=== PATIENT | female | born 1950 | race Hispanic/Latino ===

== ENCOUNTER 2018-07-27 18:21 | Emergency (ER) | payer OTHER ==
[~2018-07-27] VITALS: Ht 142.2 cm; Wt 53.5 kg
--- OUTSIDE RECORDS SUMMARY | 2018-07-27 18:23 | XMS REPORT | Summary of Care ---
Author Author [facility] Primary Care [facility] Organization [facility] Address Unknown Phone Unavailable Encounter HQ Malina(FIN) [id number] Date(s): 07/27/17 - 07/28/17 [facility] [address], [address] [place] [address]- [phone] Vital Signs No data available for this section Problem List Condition Effective Dates Status Health Status Informant Dental Active caries(Confirmed) History of recurrent Resolved ear infection(Confirmed) Osteoporosis(Confirm Active ed) Annual physical Active exam(Confirmed) Preoperative Active clearance(Confirmed) Screening for breast Active cancer(Confirmed) Screening for Active glaucoma(Confirmed) Sjogren's Resolved syndrome(Confirmed) Encounter for Active immunization(Confirm ed) Allergies, Adverse Reactions, Alerts Substance Reaction Severity Status NKDA Active Medications No data available for this section Results No data available for this section Immunizations Given and Recorded Vaccine Date Status Refusal Reason pneumococcal 23-valent vaccine1 01/12/17 Given influenza virus vaccine, inactivated2 01/12/17 Given 1Result Comment: Patient waited 15 min with no reaction. 2Result Comment: Patient waited 15 min with no reaction. Procedures Procedure Date Related Diagnosis Body Site Status Bone density scan1 01/23/17 Completed Screening mammography2 01/23/17 Completed Screening colonoscopy3 2011 Completed section4 Completed 1IMPRESSION: OSTEOPOROSIS OF LUMBAR SPINE Patient is at high risk for fracture. 2IMPRESSION: BENIGN RECOMMENDATION:There is no mammographic evidence of malignancy. A 1 year screeni ng mammogram is recommended.(01/24/2018) 3Repeat in 10 yrs [address], 1975 Social History Social History Type Response Substance Abuse Use: None. 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
--- OUTSIDE RECORDS SUMMARY | 2018-07-27 18:23 | XMS REPORT | Summary of Care ---
Author Author [facility] Care [facility] Organization [facility] Address Unknown Phone Unavailable Encounter ALYCIA Radford(FIN) [id number] Date(s): 07/29/17 - 07/29/17 [facility] [address], [address] [place] [address]- [phone] Discharge Disposition: Home or Self Care Attending Physician: Ilya Nagy MD Vital Signs Most recent to 1 oldest [Reference Range]: Height 144.78 cm (07/29/17 3:44 PM) Temperature Oral 98.0 DegF [96.4-99.1 DegF] (07/29/17 3:44 PM) Blood Pressure 136/81 mmHg [90-140/60-90 mmHg] (07/29/17 3:44 PM) Respiratory Rate 14 BRMIN [14-20 BRMIN] (07/29/17 3:44 PM) Peripheral Pulse 98 bpm Rate [60-100 bpm] (07/29/17 3:44 PM) Weight 49.091 kg (07/29/17 3:44 PM) Body Mass Index 23.42 m2 (07/29/17 3:44 PM) Problem List Condition Effective Dates Status Health Status Informant Dental Active caries(Confirmed) History of recurrent Resolved ear infection(Confirmed) Osteoporosis(Confirm Active ed) Annual physical Active exam(Confirmed) Preoperative Active clearance(Confirmed) Screening for breast Active cancer(Confirmed) Screening for Active glaucoma(Confirmed) Sjogren's Resolved syndrome(Confirmed) Encounter for Active immunization(Confirm ed) Allergies, Adverse Reactions, Alerts Substance Reaction Severity Status NKDA Active Medications No Known Medications Results No data available for this section [...] mammogram is recommended.(01/24/2018) 3Repeat in 10 yrs [address], 1975 Social History Social History Type Response Substance Abuse Use: None. 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
--- OUTSIDE RECORDS SUMMARY | 2018-07-27 18:23 | XMS REPORT | Summary of Care ---
Author Author [facility] Organization [facility] Address Unknown Phone Unavailable Encounter ALYCIA Radford(FIN) [id number] Date(s): 07/20/17 - 07/20/17 [facility] [address], [address] [place] [address]- [phone] Discharge Disposition: Home or Self Care Attending Physician: Annie Hayes MD Vital Signs Most recent to 1 oldest [Reference Range]: Height 144.78 cm (07/20/17 8:07 AM) Temperature Oral 97.5 DegF [96.4-99.1 DegF] (07/20/17 8:07 AM) Blood Pressure 109/67 mmHg [90-140/60-90 mmHg] (07/20/17 8:07 AM) Respiratory Rate 16 BRMIN [14-20 BRMIN] (07/20/17 8:07 AM) Peripheral Pulse 70 bpm Rate [60-100 bpm] (07/20/17 8:07 AM) Weight 49.318 kg (07/20/17 8:07 AM) Body Mass Index 23.53 m2 (07/20/17 8:07 AM) Problem List Condition Effective Dates Status Health Status Informant Dental Active caries(Confirmed) History of recurrent Resolved ear infection(Confirmed) Osteoporosis(Confirm Active ed) Annual physical Active exam(Confirmed) Preoperative Active clearance(Confirmed) Screening for breast Active cancer(Confirmed) Screening for Active glaucoma(Confirmed) Sjogren's Resolved syndrome(Confirmed) Encounter for Active immunization(Confirm ed) Allergies, Adverse Reactions, Alerts Substance Reaction Severity Status NKDA Active Medications alendronate 70 mg oral tablet 70 mg=1 tab, PO, Q7D, with 6 to 8 ounces plain water, at least 30 minutes before first food, beverage, or medication of the day, # 12 tab, 1 Refill(s), Pharmacy: [facility] [id number] Start Date: 07/20/17 Status: Ordered calcium-vitamin D 600 mg-400 intl units oral tablet 1 tab, PO, BID, # 60 tab, 0 Refill(s) Start Date: 07/20/17 Status: Ordered Results No data available for this section [...] mammogram is recommended.(01/24/2018) 3Repeat in 10 yrs [address], 1975 Social History Social History Type Response Substance Abuse Use: None. 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
--- OUTSIDE RECORDS SUMMARY | 2018-07-27 18:23 | XMS REPORT | Continuity of Care Document ---
Author Author [facility] Address Unknown Phone Unavailable Problems Problem Status Onset Date Classification Date Reported Comments Source V76.12 - SCREEN MAMMOGRA Active 12/26/2014 [facility] [place] NAUSEA Active 12/19/2014 [facility] Dental caries Active Problem 11/25/2017 [facility] History of recurrent ear infection Resolved Problem 11/25/2017 [facility] [place] Osteoporosis Active Problem 11/25/2017 [facility] [place] Preoperative clearance Active Problem 11/25/2017 [facility] [place] Screening for breast cancer Active Problem 11/25/2017 [facility] [place] Screening for glaucoma Active Problem 11/25/2017 [facility] Sjogren's syndrome Resolved Problem 11/25/2017 [facility] [place] Encounter for immunization Active Problem 11/25/2017 [facility] [place] Medications Medication Details Route Status Patient Instructions Ordering Provider Order Date Source Calcium Carbonate 1500 MG / Cholecalciferol 400 UNT Oral Tablet 1 tab, PO, BID, # 60 tab, 0 Refill(s) Active 07/20/2017 [facility] Alendronic acid 70 MG Oral Tablet 70 mg=1 tab, PO, Q7D, with 6 to 8 ounces plain water, at least 30 minutes before first food, beverage, or medication of the day, # 12 tab, 1 Refill(s), Pharmacy: [facility] [id number] Active 07/20/2017 [facility] Saline Flush 0.9% 10 mL, Route: IVP, Drug Form: INJ, Dosing Weight 52.273, kg, PRN, PRN Line Flush, Start date: 12/19/14 13:15:00, Duration: 30 day, Stop date: 01/18/15 13:14:00 Inactive 12/19/2014 [facility] Allergies, Adverse Reactions, Alerts Substance Category Reaction Severity Reaction type Status Date Reported Comments Source Immunizations Immunization Date Given Site Status Last Updated Comments Source pneumococcal 23-valent vaccine<sup>2</sup> 01/12/2017 Left Deltoid completed [facility] Result Comment: Patient waited 15 min with no reaction. [facility] pneumococcal 23-valent vaccine<sup>1</sup> 01/12/2017 Left Deltoid completed [facility] Result Comment: Patient waited 15 min with no reaction. [facility] influenza virus vaccine, inactivated<sup>1</sup> 01/12/2017 Right Deltoid completed [facility] Result Comment: Patient waited 15 min with no reaction. [facility] [place] influenza virus vaccine, inactivated<sup>2</sup> 01/12/2017 Right Deltoid completed [facility] Result Comment: Patient waited 15 min with no reaction. [facility] Results Order Name Results Value Reference Range Date Interpretation Comments Source Breast Mammo Scrn MAREK incl CAD MA Breast Mammo Scrn AMREK incl CAD MA BILATERAL DIGITAL SCREENING MAMMOGRAM WITH CAD: 03/03/2018 CLINICAL: Encounter For Other Screening For Malignant Neoplasm Of Breast/Z12.39. Current study was evaluated with a Computer Aided Detection (CAD) system. COMPARISON:Comparison is made to exams dated: 01/23/2017 mammogram, 01/12/2015 mammogram, and 01/10/2014 mammogram - [facility]. TECHNIQUE: Mammographic views were obtained using digital acquisition. Current study was also evaluated with a Computer Aided Detection (CAD) system. FINDINGS: The tissue of both breasts is heterogeneously dense, which could obscure detection of small masses. There are benign appearing calcifications in both breasts. No significant masses, calcifications, or other findings are seen in either breast. There has been no significant interval change. IMPRESSION: BENIGN RECOMMENDATION:There is no mammographic evidence of malignancy. A 1 year screening mammogram is recommended.(03/04/2019) Professional services are provided by the [facility]. Dr. Cordelia collazo/penmabel:03/03/2018 09:23:47 Student Services Director(s): RT Yaa(R)(M), [facility] letter sent: BI-RADS 1/2 Mammogram BI-RADS: 2 Benign 03/03/2018 - - Read by: Cordelia Mcknight DO Dictated Date/time: 03/03/18 09:23 Electronically Signed by: Cordelia Mcknight DO 03/03/18 09:23 [facility] Bone Density D[facility] [employer] MA Bone Density D[employer] MA BONE DENSITY ASSESSMENT: 03/03/2018 CLINICAL DATA: Post menopausal. M81.0 Age related osteoporosis. RISK FACTORS: . COMPARISON: 01/23/2017 Right hip using a Hologic unit from [facility] with reported normal fracture risk, BMD of 0.817g/cm2, T-score of -1.00, and Z-score of 0.10. 01/23/2017 AP L1-L2 region of spine using a Hologic unit from [facility] with reported high fracture risk, BMD of 0.660g/cm2, T-score of -2.90, and Z-score of -1.20. 01/23/2017 Left hip using a Hologic unit from [facility] with reported medium fracture risk, BMD of 0.756g/cm2, T-score of -1.50, and Z-score of - 0.30. FINDINGS: Bone density evaluation was performed 03/03/2018 on the right femur neck using a Hologic unit. The BMD average for the exam is 0.747 g/cm2. The T-score is -0.90 and the Z-score is 0.50. This matches the World Health Organization's criteria for normal bone density and places the patient within normal limits of fracture risk. An additional bone density evaluation was performed 03/03/2018 on the left femur neck using a Hologic unit. The BMD average for the exam is 0.686 g/cm2. The T- score is -1.50. This matches the World Health Organization's criteria for osteopenia and places the patient at a medium risk for fracture. An additional bone density evaluation was performed 03/03/2018 on the right hip using a Hologic unit. The BMD average for the exam is 0.812 g/cm2. The T-score is -1.10 and the Z-score is 0.10. Since the previous similar exam of 01/23/2017, there has been a -0.005 or -0.6% change in the BMD value which represents no significant interval change in bone density. This matches the World Health Organization's criteria for osteopenia and places the patient at a medium risk for fracture. An additional bone density evaluation was performed 03/03/2018 on the left hip using a Hologic unit. The BMD average for the exam is 0.746 g/cm2. The T-score is -1.60 and the Z-score is -0.30. Since the previous similar exam of 01/23/2017, there has been a -0.010 or -1.3% change in the BMD value which represents no significant interval change in bone density. This matches the World Health Organization's criteria for osteopenia and places the patient at a medium risk for fracture. An additional bone density evaluation was performed 03/03/2018 on the AP L1-L2 region of spine using a Hologic unit. The BMD average for the exam is 0.683 g/cm2. The T-score is -2.70 and the Z-score is -0.90. Since the previous similar exam of 01/23/2017, there has been a +0.023 or +3.5% change in the BMD value which represents no significant interval change in bone density. This matches the World Health Organization's criteria for osteoporosis and places the patient at a high risk for fracture. IMPRESSION: OSTEOPOROSIS Patient is at high risk for fracture. Dr. Cordelia Mcknight D.O. ht/penrad:03/03/2018 09:24:35 Student Services Director(s): Estee HILL(Janelle)(M), [facility] 03/03/2018 - - Read by: Cordelia Mcknight DO Dictated Date/time: 03/03/18 09:24 Electronically Signed by: Cordelia Mcknight DO 03/03/18 09:24 [facility] [place] Breast Mammo Scrn MAREK incl CAD MA Breast Mammo Scrn MAREK incl CAD MA BILATERAL DIGITAL SCREENING MAMMOGRAM WITH CAD: 01/23/2017 CLINICAL: Routine/Screening. Current study was evaluated with a Computer Aided Detection (CAD) system. COMPARISON:Comparison is made to exams dated: 01/12/2015 mammogram, 01/10/2014 mammogram, 04/14/2012 mammogram, and 04/14/2011 mammogram - [facility]. TECHNIQUE: Mammographic views were obtained using digital acquisition. Current study was also evaluated with a Computer Aided Detection (CAD) system. The tissue of both breasts is heterogeneously dense, which could obscure detection of small masses. FINDINGS: There are stable bilateral asymmetries, accounting for differences in positioning and technique. There are benign appearing calcifications in both breasts. No significant masses, calcifications, or other findings are seen in either breast. There has been no significant interval change. IMPRESSION: BENIGN RECOMMENDATION:There is no mammographic evidence of malignancy. A 1 year screening mammogram is recommended.(01/24/2018) This exam was interpreted at [id number] for KHAI Whitfield 15. Wayne Bond M.D., jp/ariana:01/23/2017 11:09:02 Student Services Director(s): RT Siddhartha(R)(M), [facility] letter sent: BI-RADS 1/2 Mammogram BI-RADS: 2 Benign 01/23/2017 - - Read by: Wayne Bond MD Dictated Date/time: 01/23/17 11:09 Electronically Signed by: Wayne Bond MD 01/23/17 11:09 [facility] [place] Bone Density DXA [employer] MA Bone Density D[employer] MA BONE DENSITY EVALUATION: 01/23/2017 CLINICAL DATA: Post menopausal. Age-Related Osteoporosis Without Current Pathological Fracture/M81.0 FINDINGS: Bone density evaluation was performed 01/23/2017 on the right femur neck using a Hologic unit. The BMD average for the exam is 0.717 g/cm2. The T-score is -1.20 and the Z-score is 0.20. This matches the World Health Organization's criteria for osteopenia and places the patient at a medium risk for fracture. An additional bone density evaluation was performed 01/23/2017 on the left femur neck using a Hologic unit. The BMD average for the exam is 0.690 g/cm2. The T- score is -1.40 and the Z-score is -0.10. This matches the World Health Organization's criteria for osteopenia and places the patient at a medium risk for fracture. An additional bone density evaluation was performed 01/23/2017 on the right hip using a Hologic unit. The BMD average for the exam is 0.817 g/cm2. The T-score is -1.00 and the Z-score is 0.10. This matches the World Health Organization's criteria for normal bone density and places the patient within normal limits of fracture risk. An additional bone density evaluation was performed 01/23/2017 on the left hip using a Hologic unit. The BMD average for the exam is 0.756 g/cm2. The T-score is -1.50 and the Z-score is -0.30. This matches the World Health Organization's criteria for osteopenia and places the patient at a medium risk for fracture. An additional bone density evaluation was performed 01/23/2017 on the AP L1-L2 region of spine using a Hologic unit. The BMD average for the exam is 0.660 g/cm2. The T-score is -2.90 and the Z-score is -1.20. This matches the World Health Organization's criteria for osteoporosis and places the patient at a high risk for fracture. IMPRESSION: OSTEOPOROSIS Patient is at high risk for fracture. This exam was interpreted at [id number] for KHAI Whitfield 15. Wayne Bond M.D., jp/ariana:01/23/2017 11:06:54 Student Services Director(s): Winifred HILL(R)(M), [facility] 01/23/2017 - - Read by: Wayne Bond MD Dictated Date/time: 01/23/17 11:06 Electronically Signed by: Wayne Bond MD 01/23/17 11:06 FINAL REPORT [facility] Digital Mammo Screening Marek MA Digital Mammo Screening Marek MA - DIGITAL MAMMO SCREENING MAREK MA BILATERAL DIGITAL SCREENING MAMMOGRAM WITH CAD: 01/12/2015 CLINICAL: Routine. Current study was evaluated with a Computer Aided Detection (CAD) system. Comparison is made to exams dated: 01/10/2014 mammogram and 04/14/2012 mammogram - [facility]. The tissue of both breasts is heterogeneously dense, which could obscure detection of small masses. There are benign vascular calcifications in both breasts. No significant masses, calcifications, or other findings are seen in either breast. There has been no significant interval change. IMPRESSION: BENIGN There is no mammographic evidence of malignancy. A 1 year screening mammogram is recommended. Hernandez Cummings M.D jv/penrad:01/12/2015 09:55:22 Student Services Director: Estee Arredondo [facility] Rosendo Coffey This exam was dictated and interpreted by [id number] for GUILLERMINA Coffey. letter sent: Normal exam Mammogram BI-RADS: 2 Benign 01/12/2015 - - Read by: Hernandez Cummings MD Dictated Date/time: 01/12/15 09:55 Electronically Signed by: Hernandez Cummings 01/12/15 09:55 FINAL REPORT [facility] Vital Signs Vital Sign Value Date Comments Source BMI Calculated 23.42 07/29/2017 [facility] Weight 49.091 07/29/2017 [facility] Height 144.78 cm 07/29/2017 [facility] Temperature Oral (F) 98.0 F 07/29/2017 [facility] Respitory Rate 14 07/29/2017 [facility] Heart Rate 98 07/29/2017 [facility] Systolic (mm Hg) 136 07/29/2017 [facility] Diastolic (mm Hg) 81 07/29/2017 [facility] BMI Calculated 23.53 07/20/2017 [facility] Weight 49.318 07/20/2017 [facility] Height 144.78 cm 07/20/2017 [facility] Temperature Oral (F) 97.5 F 07/20/2017 [facility] Respitory Rate 16 07/20/2017 [facility] Heart Rate 70 07/20/2017 [facility] Systolic (mm Hg) 109 07/20/2017 [facility] Diastolic (mm Hg) 67 07/20/2017 [facility] Weight 52.273 12/19/2014 [facility] BMI Calculated 25.84 12/19/2014 [facility] Height 142.24 cm 12/19/2014 [facility] Temperature Oral (F) 98.5 F 12/19/2014 [facility] Respitory Rate 20 12/19/2014 [facility] Heart Rate 100 12/19/2014 [facility] Systolic (mm Hg) 138 12/19/2014 [facility] Diastolic (mm Hg) 94 12/19/2014 [facility] Encounters Location Location Details Encounter Type Encounter Number Reason For Visit Attending Provider ADM Date DC Date Status Source [facility] [place] [facility] [id number] LUCILLE CLAY 01/10/2014 01/11/2014 [facility] [place] [facility] [id number] Omid Jarrett 12/19/2014 12/19/2014 [facility] [place] [facility] [id number] LUCILLE ROBLESANG 01/12/2015 01/13/2015 [facility] [place] Outpatient [id number] HÉCTOR DIEZ 01/12/2017 [facility] [place] Out[facility] Di[facility] Services [id number] Héctor Diez 01/23/2017 01/24/2017 [facility] [place] Outpatient [id number] HÉCTOR DIEZ 07/20/2017 [facility] Primary [facility] Outpatient [id number] Hécotr Diez 07/20/2017 07/21/2017 [facility] Phone Message [id number] 07/27/2017 07/29/2017 [facility] Outpatient [id number] ANIBAL LUIS 07/29/2017 [facility] Outpatient [id number] Zhihao Lilo 07/29/2017 07/30/2017 [facility] Outpatient [id number] HÉCTOR DIEZ 08/03/2017 [facility] Ambulatory Pre-Reg [id number] Héctor Diez 08/03/2017 08/03/2017 [facility] Outpatient [id number] HÉCTOR DIEZ 02/04/2018 [facility] Outpatient [id number] HÉCTOR DIEZ 08/05/2018 [facility] Procedures Procedure Code Date Perfomer Comments Source Bone density scan<sup>1</sup> [id number] 01/23/2017 IMPRESSION: OSTEOPOROSIS OF LUMBAR SPINE Patient is at high risk for fracture. [facility] Screening mammography<sup>2</sup> [id number] 01/23/2017 IMPRESSION: BENIGN RECOMMENDATION:There is no mammographic evidence of malignancy. A 1 year screening mammogram is recommended.(01/24/2018) [facility] Screening mammography [id number] 04/13/2014 [facility] [place] Screening colonoscopy<sup>1</sup> [id number] 04/13/2011 Repeat in 10 yrs [facility] Screening colonoscopy<sup>3</sup> [id number] 04/13/2011 Repeat in 10 yrs [facility] section<sup>2</sup> [id number] 1974 [facility] section<sup>4</sup> [id number] 1974 [facility] Group
--- OUTSIDE RECORDS SUMMARY | 2018-07-27 18:23 | XMS REPORT | Summary of Care ---
Author Author [facility] [place] Organization [facility] [place] Address Unknown Phone Unavailable Encounter HQ Toña_deidre(FIN) [id number] Date(s): 01/23/17 - 01/23/17 [facility] [place] [address] [place] [phone] Discharge Disposition: Home or Self Care Attending Physician: Annie Hayes MD Vital Signs No data available for this section Problem List Condition Effective Dates Status Health Status Informant Dental Active caries(Confirmed) History of recurrent Resolved ear infection(Confirmed) Osteoporosis(Confirm Active ed) Annual physical Active exam(Confirmed) Preoperative Active clearance(Confirmed) Screening for breast Active cancer(Confirmed) Sjogren's Resolved syndrome(Confirmed) Encounter for Active immunization(Confirm ed) Allergies, Adverse Reactions, Alerts Substance Reaction Severity Status NKDA Active Medications No data available for this section Results No data available for this section Immunizations Given and Recorded Vaccine Date Status Refusal Reason influenza virus vaccine, inactivated1 01/12/17 Given pneumococcal 23-valent vaccine2 01/12/17 Given 1Result Comment: Patient waited 15 min with no reaction. 2Result Comment: Patient waited 15 min with no reaction. Procedures Procedure Date Related Diagnosis Body Site Screening mammography 2015 Screening colonoscopy1 2012 section2 1Repeat in 10 yrs 1974 Social History Social History Type Response Substance Abuse Use: None. 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
--- OUTSIDE RECORDS SUMMARY | 2018-07-27 18:23 | XMS REPORT | Summary of Care ---
Author Author [facility] Primary Care [facility] Organization [facility] Address Unknown Phone Unavailable Encounter HQ Malina(FIN) [id number] Date(s): 08/03/17 - 08/03/17 [facility] [address], [address] [place] [address]- [phone] Attending Physician: Annie Hayes MD Vital Signs [...] mammogram is recommended.(01/24/2018) 3Repeat in 10 yrs [address], 1975 Social History Social History Type Response Substance Abuse Use: None. 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
--- OUTSIDE RECORDS SUMMARY | 2018-07-27 18:24 | XMS REPORT | Summary of Care ---
Author Author [facility] Primary Care [facility] Organization [facility] Address Unknown Phone Unavailable Encounter ALYCIA Radford(FIN) [id number] Date(s): 07/20/17 - 07/20/17 [facility] [address], [address] [place] [address]- [phone] Discharge Disposition: Home or Self Care Attending [...] day, # 12 tab, 1 Refill(s), Pharmacy: [facility] [id number] Start Date: 07/20/17 Status: Ordered calcium-vitamin D [...] mammogram is recommended.(01/24/2018) 3Repeat in 10 yrs [address], 1975 Social History Social History Type Response Substance Abuse Use: None. 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
--- OUTSIDE RECORDS SUMMARY | 2018-07-27 18:24 | XMS REPORT | Summary of Care ---
Author Organization Unknown Address Unknown Phone Unavailable Encounter HQ Encntr_deidre(FIN) [id number] Date(s): 01/10/14 - 01/10/14 [facility] Outpatient Imaging - [address] [address] [place] Discharge Disposition: Home Physician Attending: LUCILLE CLAY Reason for Visit V76.12 - SCREEN MAMMOGRA Problem List No data available for this section Allergies, Adverse Reactions, Alerts No data available for this section Medications No data available for this section Medications Administered During Your Visit No data available for this section Immunizations No data available for this section
--- OUTSIDE RECORDS SUMMARY | 2018-07-27 18:24 | XMS REPORT | Summary of Care ---
Author Author [facility] [place] Organization [facility] [place] Address Unknown Phone Unavailable Encounter HQ Camronntr_aliwilliams(FIN) [phone] Date(s): 01/12/15 - 01/12/15 [facility] [place] [address] [place], [place] [id number] [place] [address] [phone] Discharge Disposition: Home Attending Physician: LUCILLE CLAY Vital Signs No data available for this section Problem List No data available for this section Allergies, Adverse Reactions, Alerts Substance Reaction Severity Status NKDA Active Medications No data available for this section Results No data available for this section Immunizations No data available for this section Procedures No data available for this section Social History No data available for this section Assessment and Plan No data available for this section
--- OUTSIDE RECORDS SUMMARY | 2018-07-27 18:24 | XMS REPORT | Summary of Care ---
Author Author [facility] Primary Care [facility] Organization [facility] Address Unknown Phone Unavailable Encounter ALYCIA Radford(FIN) [id number] Date(s): 07/20/17 - 07/20/17 [facility] [address], [address] [place] [address]- [phone] Discharge Disposition: Home or Self Care Attending [...] day, # 12 tab, 1 Refill(s), Pharmacy: [facility] [id number] Start Date: 07/20/17 Status: Ordered calcium-vitamin D [...] mammogram is recommended.(01/24/2018) 3Repeat in 10 yrs [address], 1975 Social History Social History Type Response Substance Abuse Use: None. 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
[2018-07-27 19:47] LABS: BASOPHILS % 0.1 % (0.0-1.0); EOSINOPHILS % 0.1 % (0.0-6.0); HEMATOCRIT 39.2 % (34.2-44.1); HEMOGLOBIN 13.3 g/dL (12.0-16.0); LYMPHOCYTES # (AUTO) 1.1 (1.0-3.2); LYMPHOCYTES % 15.9 % (18.0-39.1); MEAN CORPUSCULAR HEMOGLOBIN 31.1 pg (28-32); MEAN CORPUSCULAR HGB CONC 33.9 g/dL (31-35); MEAN CORPUSCULAR VOLUME 91.8 fL (81-99); MONOCYTES # (AUTO) 0.3 (0.2-0.8); MONOCYTES % 4.7 % (4.4-11.3); NEUTROPHILS # (AUTO) 5.6 (2.1-6.9); NEUTROPHILS % 78.9 % (38.7-80.0); RED BLOOD COUNT 4.27 x10e6/uL (3.6-5.1); RED CELL DISTRIBUTION WIDTH 12.5 % (11.7-14.4)
[2018-07-27 19:55] LABS: INR 0.96; PARTIAL THROMBOPLASTIN TIME 31.2 seconds (23.8-35.5); PROTHROMBIN TIME 13.3 seconds (11.9-14.5)
[2018-07-27 20:04] LABS: ALANINE AMINOTRANSFERASE 12 IU/L (0-55); ALBUMIN 4.2 g/dL (3.5-5.0); ALKALINE PHOSPHATASE 64 IU/L (40-150); ANION GAP 13.2 mmol/L (8-16); BLOOD UREA NITROGEN 8 mg/dL (7-26); BUN/CREATININE RATIO 13 (6-25); CARBON DIOXIDE 27 mmol/L (22-29); CHLORIDE 100 mmol/L (98-107); CREATININE, SERUM 0.61 mg/dL (0.57-1.11); EST GLOMERULAR FILTRATION RATE > 60 ML/MIN (60-); GLUCOSE 104 mg/dL (74-118); POTASSIUM 4.2 mmol/L (3.5-5.1); SODIUM 136 mmol/L (136-145)
[2018-07-27 20:15] LABS: PLATELET COUNT 1 x10e3/uL (140-360)
[2018-07-27 20:18] LABS: PLATELET MORPHOLOGY COMMENT NORMAL; RBC MORPHOLOGY COMMENT NORMAL
[2018-07-27 20:19] LABS: PLATELET ESTIMATE MARKEDLY DECREASED
--- NOTE | 2018-07-27 21:22 | NUR ---
TRANSFER INITIATED TO [facility]
--- NOTE | 2018-07-27 21:27 | NUR ---
DR. EDEN SPEAKING TO DR. KIDD ([facility]) AT THIS TIME
== END 2018-07-27 23:10 | disposition short-term general hospital (02) ==
LOC: ER 18:21
DX: D69.3 Immune thrombocytopenic purpura (principal)
CPT/HCPCS: 36415; 80053; 85025; 85610; 85730; 86850; 86870; 86880; 86900; 86905; 99001